=== PATIENT | female | born 1950 | race Two or more races ===

== ENCOUNTER 2018-09-02 07:29 | Emergency (ER) | payer MEDICARE, OTHER ==
--- NOTE | 2018-09-02 08:21 | ER Document Report ---
ED General - General Chief Complaint: Low Back Pain Stated Complaint: BACK PAIN Time Seen by Provider: 09/02/18 08:17 Primary Care Provider: RITA MORFIN MD [ACTIVE STAFF] - Follow up in 3-5 days BELÉN GARCIA MD [ACTIVE STAFF] - Follow up in 3-5 days TRAVEL OUTSIDE OF THE [place] IN LAST 30 DAYS: No - HPI Notes: 68-year-old female with a history of hypertension, chronic back pain and a hiatal hernia presents to the ED with complaints of having acute on chronic lower back pain over patient states that this back pain has become progressively worse over the last 2 weeks on the right, states he has more pain in the flank area, patient also reports that she feels like she has "bugs all over my body" for the last 3 months. Patient has used colitis multiple times, had a e xterminator in her home to check for any bugs. Patient states she feels like she has box in her hair patient denies any recent trauma or falling is supposed to have spinal surgery in [place] which she is aware her home is but she is visiting her daughter approximately 1 month. Patient has not told her doctor that she is feeling the sensation of bugs all over because she does not want them to cancel her surgery. Denies any new medications, new foods and only recent travel is been between [place] and [facility]. Daughter is at bedside and confirms that patient is staying with her and she has been complaining daily of feeling like she has bugs all over. Patient did have bugs in her home in April 2018 due to buying a new rug, she since then has had bugs removed. Daughter states that she has been on mother's home several times within the last 4 months and there hasn't been any bugs that she has witnessed. Denies fevers, chills, chest pain,palpitations, shortness of breath, dyspnea, nausea, vomiting, diarrhea, abdominal pain, hematuria,blurred vision, double vi hammad, loss of vision, speech changes, LH, dizziness, syncope, headaches, wheezing, ST, URI, neck pain, weakness, bowel or bladder dysfunction, saddle anesthesia, numbness or tingling in bilateral upper or lower extremities equally, muscle paralysis, weakness in bilateral upper or lower extremities e qually or rash. - Related Data Allergies/Adverse Reactions: No Known Allergies Allergy (Verified 09/02/18 07:48) Past Medical History - General Information source: Patient, Relative - daughter - Social History Smoking Status: Never Smoker Chew tobacco use (# tins/day): No Frequency of alcohol use: None Drug Abuse: None Family History: Hypertension Patient has suicidal ideation: No Patient has homicidal ideation: No - Past Medical History Cardiac Medical History: Reports: Hx Hypertension Renal/ Medical History: Reports: Hx Kidney Stones. Denies: Hx Peritoneal Dialysis GI Medical History: Reports: Hx Gastroesophageal Reflux Disease Psychiatric Medical History: Reports: Hx Depression - anxiety Past Surgical History: Reports: Hx Hysterectomy, Hx Kidney (Renal Surgery), Hx Orthopedic Surgery - back, Hx Tubal Ligation Review of Systems - Review of Systems Constitutional: No symptoms reported EENT: No symptoms reported Cardiovascular: No symptoms reported Respiratory: No symptoms reported Gastrointestinal: No symptoms reported Genitourinary: No symptoms reported Female Genitourinary: No symptoms reported Musculoskeletal: See HPI Skin: See HPI Hematologic/Lymphatic: No symptoms reported Neurological/Psychological: No symptoms reported Physical Exam - Vital signs Vitals: Temp Pulse Resp BP Pulse Ox 97.5 F 65 16 194/101 H 99 09/02/18 07:35 09/02/18 07:35 09/02/18 07:35 09/02/18 07:35 09/02/18 07:35 - Notes Notes: PHYSICAL EXAMINATION: GENERAL: Well-appearing, well-nourished and in no acute distress. HEAD: Atraumatic, normocephalic.. Multiple scabs on scalp with slight erythema and induration. EYES: Pupils equal round and reactive to light, extraocular movements intact, conjunctiva are normal. ENT: Nares patent, oropharynx clear without exudates. Moist mucous membranes. NECK: Normal range of motion, supple without lymphadenopathy LUNGS: Breath sounds clear to auscultation bilaterally and equal. No wheezes rales or rhonchi. HEART: Regular rate and rhythm without murmurs ABDOMEN: Soft, nontender, nondistended abdomen. No guarding, no rebound. No masses appreciated.no cva tenderness palpated. Female : External genitalia without erythema, exudate or discharge. no pubic hair noted. Vaginal vault is without discharge. Cervix is of normal color without lesion. There is no bleeding noted. Uterus is noted to be of normal size and nontender. No cervical motion tenderness is seen. No masses are palpated. no adnexal tenderness or mass. Anus without hemorrhoid, fissure, erythema, irritation or induration Musculoskeletal: Normal range of motion, no pitting or edema. No cyanosis Pain with flexion and extension at 50 degrees, positive straight leg test on right. tenderness distal to to right flank area with tendernessNormal hip rotation. DTR +2 in BLE equally. Strength 5 out of 5 both distally and proximally to bilatera lower extremities normal motor and sensory function in BLE equally. Distal pulses + 2 BLE equally. Noted paraspinal tenderness near L2 and L3 on right with No spinal tenderness from L1-L3. No CVA tenderness bilaterally. Femoral pulses + 2 bilaterally and equally. No abrasions, scars, lacerations, ecchymosis of any recent trauma. normal gait. NEUROLOGICAL: Cranial nerves grossly intact. Normal speech, normal gait. Normal sensory, motor exams. PERRLA, EOMI. Full motor and sensory function throughout. Cam Specialist + 2 equal bilaterally in BUE. Tongue midline. No pronator drift. No ataxia. Neck with APROM. Raises eyebrows. Strength is 5 out of 5 in bilateral upper and lower extremities equally.Speaks in full sentences. No weakness on one side. Romberg gait steady able to walk straight line. Able to recall 5 objects. PSYCH: Normal mood, normal affect, slightly anxious SKIN: Warm, Dry, normal turgor, no rashes or lesions noted. Course - Re-evaluation Re-evalutation: 09/02/18 14:12 38-year-old female who is afebrile, slightly hypertensive without distress for evaluation of lower back pain and the feeling of "bugs all over". He has had a history of chronic back pain however states his back pain is become progressively worse on the right with an increased sensation of feeling bugs all over. On clinical examination patient does have a positive straight leg test on the right however does have normal flexion extension for somebody with chronic back pain, normal rotation at the hips DTRs +2 in bilateral lower extremities and strength 5 out of 5 in bilateral lower extremities but does have pain on the right paraspinal near L1-L3 as well as spinal tenderness, initial x-ray lumbar spine does show a calcified mass at the vertebral L3 with surrounding lucency, requires MRI of the lumbar spine with and without IV contrast. CBC negative for leukocytosis or anemia, CMP negative for hepatic or renal dysfunction, urinalysis negative for UTI proteinuria hematuria, no dehydration. MRI with and without contrast of the lumbar spine shows multilevel degenerative disc and facet changes without a high-grade central or foraminal encroachment. Large L3 vertebral body hemangioma previously treated with kyphoplasty, bone cement injection per radiology, Dr. Garima Gramajo. GC and wet mount negative, psych did go to bedside due to concerns for having the sensation of bugs all over for the last 3 months, mental health to clear patient any psychiatric co ncerns other than possibly a little anxiety, all medications have been reviewed and patient has not been in any new medications within the last year daughter has been at bedside throughout duration of ER visit. Discussed with daughter that she does not have a concerning mass however she does need follow-up with surgeon for meningioma evaluation patient does have an appointment with a back surgeon in [place]. Discussed with patient that we will start her on a course of oral antibiotics to treat for a scalp cellulitis, patient had to use multiple courses of skull lice which has caused almost a pseudo-chemical burn on her scalp, discussed with patient that she does need to trim her nails, to stop using Colace, and she does need to see her doctor outpatient. Provider discussed this with patient and daughter extensively, all questions and concerns were answered by this provider. Both patient and daughter verbalized understanding of the plan of care and agreed with plan of care. Patient remained stable throughout duration of stay, afebrile, no distress, denied any pain after performing a Medical Screening Examination, I estimate there is LOW risk for EXPANDING OR RUPTURED ABDOMINAL AORTIC ANEURYSM, CAUDA EQUINA SYNDROME, EPIDURAL MASS ABSCESS OR LESION(S), OSTEOMYELITIS,PERSONAL HISTORY OF CANCER, IMMUNOSUPPERSSSION, HISTORY OF IV DRUG USE, FRACTURE, CORD COMPERSSION, CANCER, RETROPERITONEAL BLEED, SPINAL EPIDURAL HEMATOMA, or HERNIATED DISK CAUSING SEVERE SPINAL STENOSIS, thus I consider the discharge disposition reasonable. I have reevaluated this patient multiple times and no significant life threatening changes are noted. The patient and I have discussed the diagnosis and risks, and we agree with discharging home and close follow-up. We also discussed returning to the Emergency Department immediately if new or worsening symptoms occur with the understanding that symptoms and presentations can change. We have discussed the symptoms which are most concerning (e.g., saddle anesthesia, urinary or bowel incontinence or retention, changing or worsening pain) that n ecessitate immediate return. Return immediately for any new or worsening symptoms. Follow up with primary care provider, call tomorrow to make followup appointment. 09/02/18 14:19 - Vital Signs Vital signs: Temp Pulse Resp BP Pulse Ox 97.5 F 65 18 150/73 H 97 09/02/18 07:35 09/02/18 07:35 09/02/18 12:26 09/02/18 12:26 09/02/18 12:26 - Laboratory Result Diagrams: 09/02/18 09:30 09/02/18 09:30 Laboratory results interpreted by me: 09/02/18 09/02/18 09/02/18 09:30 09:30 09:30 RDW 14.5 H TSH 8.19 H Salicylates < 1.0 L Acetaminophen < 10 L Discharge - Discharge Clinical Impression: Lumbar hemangioma, Cellulitis of scalp Condition: Stable Disposition: HOME, SELF-CARE Instructions: Cellulitis ([facility]), Low Back Pain ([facility]) Additional Instructions: Your MRI of your lower back showed that you have a lumbar hemangioma. You do need to follow-up with surgeon for possible kyphoplasty or possible bone cement and further evaluation. all of your lab work was normal, your vaginal swabs were negative, we will start you on an antibiotic scalp cellulitis. Take medications as directed, to follow-up with your primary care provider within 24 to 48 hours. Return immediately for any new or worsening symptoms such as worsening back pain, vaginal bleeding, fever, vomiting, or pain, shortness of breath, confusion, etc. Follow up with primary care provider, call tomorrow to make followup appointment. Prescriptions: Cephalexin Monohydrate [Keflex 500 mg Capsule] 500 mg PO BID #20 capsule Referrals: BELÉN GARCIA MD [ACTIVE STAFF] - Follow up in 3-5 days RITA MORFIN MD [ACTIVE STAFF] - Follow up in 3-5 days
[2018-09-02 09:02] LABS: AMORPHOUS SEDIMENT,URINE TRACE /HPF; APPEARANCE,URINE CLEAR; BILIRUBIN,URINE NEGATIVE (NEGATIVE); COLOR,URINE STRAW; GLUCOSE, URINE NEGATIVE (NEGATIVE); KETONES,URINE NEGATIVE (NEGATIVE); LEUKOCYTE ESTERASE,URINE NEGATIVE (NEGATIVE); NITRITE,URINE NEGATIVE (NEGATIVE); PROTEIN,URINE NEGATIVE (NEGATIVE); URINE SPECIFIC GRAVITY 1.008; UROBILINOGEN,URINE NEGATIVE mg/dL (<2.0)
[2018-09-02 09:41] LABS: ABSOLUTE EOSINOPHILS # (AUTO) 0.2 10^3/uL (0.0-0.6); ABSOLUTE LYMPHOCYTES (AUTO) 1.6 10^3/uL (0.5-4.7); ABSOLUTE MONOCYTES (AUTO) 0.5 10^3/uL (0.1-1.4); ABSOLUTE NEUT (AUTO) 3.2 10^3/uL (1.7-8.2); BASOPHILS % (AUTO) 0.9 % (0-2); EOSINOPHILS % (AUTO) 3.4 % (0-6); HEMATOCRIT 36.8 % (36.0-47.0); HEMOGLOBIN 12.5 g/dL (12.0-15.5); LYMPHOCYTES % (AUTO) 28.9 % (13-45); MEAN CORPUSCULAR HEMOGLOBIN 29.7 pg (27.0-33.4); MEAN CORPUSCULAR VOLUME 87 fl (80-97); MONOCYTES % (AUTO) 9.1 % (3-13); PLATELET COUNT 306 10^3/uL (150-450); RED BLOOD COUNT 4.22 10^6/uL (3.72-5.28); RED CELL DISTRIBUTION WIDTH 14.5 % (11.5-14.0); SEGMENTED NEUTROPHILS % (AUTO) 57.7 % (42-78); TOTAL CELLS COUNTED % (AUTO) 100 %; WHITE BLOOD COUNT 5.6 10^3/uL (4.0-10.5)
[2018-09-02 10:12] LABS: ALANINE AMINOTRANSFERASE 25 U/L (9-52); ALBUMIN 4.2 g/dL (3.5-5.0); ALKALINE PHOSPHATASE 92 U/L (38-126); ANION GAP 9 (5-19); ASPARTATE AMINO TRANSFERASE 20 U/L (14-36); BILIRUBIN,DIRECT 0.3 mg/dL (0.0-0.4); BLOOD UREA NITROGEN 14 mg/dL (7-20); CALCIUM 9.7 mg/dL (8.4-10.2); CARBON DIOXIDE 27 mmol/L (22-30); CHLORIDE 105 mmol/L (98-107); GLUCOSE 94 mg/dL (75-110); SODIUM 140.7 mmol/L (137-145); TOTAL PROTEIN 7.1 g/dL (6.3-8.2)
--- NOTE | 2018-09-02 10:16 | RADIOLOGY REPORT (SQ) ---
EXAM DESCRIPTION: L SPINE WHOLE COMPLETED DATE/TIME: 09/02/2018 9:48 am REASON FOR STUDY: right flank/right lumbar pain COMPARISON: None. NUMBER OF VIEWS: Five views including obliques. TECHNIQUE: AP, lateral, oblique, and sacral radiographic images acquired of the lumbar spine. LIMITATIONS: None. FINDINGS: MINERALIZATION: Normal. SEGMENTATION: Normal. No transitional anatomy. ALIGNMENT: Scoliosis of the lumbar spine, apex to the left. Normal. VERTEBRAE: A 3.0 cm x 3.8 cm calcified mass within the L3 vertebra. There are surrounding lucent are as and areas of striations surrounding the calcified mass. The left pedicle is obscured by the mass. No evidence of acute fracture or retropulsion into the spinal canal. The vertebral body appears to be of normal height. Considerations for this finding includes benign versus malignant etiologies. DISCS: Calcified mass within the L3 vertebra. There are lucent striations POSTERIOR ELEMENTS: Pedicles and facets are intact. No pars defect or posterior arch defects. HARDWARE: None in the spine. PARASPINAL SOFT TISSUES: Normal. PELVIS: Intact as visualized. No fractures. Small bone island mid right sacrum. SI joints intact. OTHER: No other significant finding. IMPRESSION: 1. A fairly well-defined calcified mass within the L3 vertebra with surrounding lucency . No evidence of acute fracture. Differential diagnosis includes benign versus malignant etiologies . Additional imaging suggested, MRI lumbar spine with and without contrast. TECHNICAL DOCUMENTATION: JOB ID: [id number]- All Rights Reserved Reading location - IP/workstation name: [email or web address]
[2018-09-02 10:48] LABS: T.VAGINALIS (WET MOUNT) NO TRICHOMONAS SEEN; WBCS (WET MOUNT) RARE WBCS SEEN; YEAST (WET MOUNT) NO YEAST SEEN
[2018-09-02 11:45] LABS: ACETAMINOPHEN < 10 ug/mL (10-30); SALICYLATE < 1.0 mg/dL (2.0-20.0)
[2018-09-02 12:04] LABS: URINE AMPHETAMINES SCREEN NEGATIVE; URINE BARBITURATES SCREEN NEGATIVE; URINE BENZODIAZEPINES SCREEN NEGATIVE; URINE COCAINE SCREEN NEGATIVE; URINE MARIJUANA (THC) SCREEN NEGATIVE; URINE METHADONE SCREEN NEGATIVE; URINE PHENCYCLIDINE SCREEN NEGATIVE
[2018-09-02 12:19] LABS: GON PCR NOT DETECTED (NOT DETECT)
[2018-09-02 12:22] LABS: CHLAM PCR NOT DETECTED (NOT DETECT)
--- NOTE | 2018-09-02 12:41 | RADIOLOGY REPORT (SQ) ---
EXAM DESCRIPTION: MRI LUMBAR SPINE COMBO COMPLETED DATE/TIME: 09/02/2018 12:21 pm REASON FOR STUDY: mass seen on lumbar xray, MRI recommended COMPARISON: Lumbar spine plain films 09/02/2018 TECHNIQUE: Sagittal and Axial imaging includes T1, T1 post gadolinium, T2, STIR and gradient echo se quences. Coronal T2/HASTE imaging. CONTRAST TYPE AND DOSE: 15 mL Dotarem. RENAL FUNCTION: Not indicated. ACR Type II contrast agent associated with few, if any, unconfounded cases of NSF LIMITATIONS: None. FINDINGS: VISUALIZED UPPER ABDOMEN: Bilateral renal parapelvic cysts are present SEGMENTATION: No transitional anatomy. The lowest well-developed disc space is labeled L5-S1. ALIGNMENT: Anatomic. VERTEBRAE and BONE MARROW: The L3 vertebral body is near completely replaced by a benign-appearing he mangioma. Hemangioma causes mild expansion of the vertebral body with mild dorsal bowing of the bony cortex. No significant central canal stenosis at L3. Hemangioma extends into the right and left pe dicles. There is bone cement in the L3 vertebral body along the anterior 2/3 within the hemangioma. This accounts for "well defined a calcified mass within the L3 vertebra". No abnormal contrast enha ncement post gadolinium. DISC SIGNAL: Diffuse decreased T2 weighted intervertebral disc signal without disc space loss of heig ht POSTERIOR ELEMENTS: Generally intact. No pars defect evident. HARDWARE: None in the spine. CORD AND CONUS: Normal in size and signal intensity. Conus at the L1 level. SOFT TISSUES: No aortic aneurysm seen. No bulky retroperitoneal adenopathy or mass. No paraspinal mas s or fluid. T11-12: Mild bilateral facet hypertrophy. No central or foraminal stenosis T12-L1: Mild diffuse posterior disc bulging and mild bilateral facet hypertrophy. No central or for aminal stenosis. L1-L2: Mild bilateral facet hypertrophy. No central or foraminal stenosis L2-L3: Mild posterior disc bulging, mild bilateral facet and ligament hypertrophy. No significant ce ntral canal narrowing. Very mild bilateral inferior foraminal narrowing without exiting L2 nerve trey t impingement L3-L4: Mild diffuse posterior disc bulging, moderate bilateral facet and ligament hypertrophy. Borde rline central canal narrowing, mild bilateral foraminal narrowing without exit L3 nerve root impingem ent. L4-L5: Borderline central canal narrowing results from broad diffuse posterior disc bulging and bony spurring with bulky bilateral facet and ligament hypertrophy. Mild bilateral foraminal narrowing wit hout exit L4 nerve root impingement L5-S1: Mild bilateral facet hypertrophy and posterior disc bulging. No central or foraminal stenosis SACRUM: Visualized upper sacrum intact. ENHANCEMENT: No abnormal conus, vertebral body, or lumbar nerve root enhancement OTHER: No other significant findings. IMPRESSION: Multilevel degenerative disc and facet changes without high-grade central or foraminal e ncroachment. Large L3 vertebral body hemangioma previously treated with kyphoplasty/bone cement injection TECHNICAL DOCUMENTATION: JOB ID: [id number] [employer]- All Rights Reserved Reading location - IP/workstation name: [email or web address]
--- NOTE | 2018-09-02 13:45 | PSYCHOLOGICAL NOTE ---
Psych Note - Psych Note Date seen by psych provider: 09/02/18 Time seen by psych provider: 12:25 Psych Note: Reason for Consult: visual and tactile hallucinations. Patient's daughter is bedside per patient's request Pt presents to ER today with c/o low back pain X 1 week. States she had surgery on it a while back but it is acting up. Pt also has c/o bugs in her hair. States she has something in her hair that is itching and painful. Feels like something is biting her head. Clinician spoke with attending physician; she reports the patient has a full exam to include pelvic (as the patient was concerned with bugs biting her anus and around her vaginal area); there were no visible bugs and testing was conducted. Patient reports she started feeling like there was bugs on her in May. She denies any new medications. She disclosed that she believes the bugs are coming from inside of her and that she can feel them biting and crawling on her. She reports that she sees little black dots and when she shakes out her bedsheet into the tub it turns to blood. She reports she believes they are lice eggs. She has been using lice treatments and combing her hair in an attempt at getting rid of them. She states she has open sores on her head from the bugs and itching. Clinician discussed the concern of using lice treatment to frequently or leaving it on too long could cause chemical burn which could worsen her scalp condition and make it itch and hurt even more. She denies this has ever happened to her before but reports she does have a "nervous disorder" that causes her to breakout in a "skin condition" when she is overly upset or anxious. She denies it looks the same as her current concerns. She denies having any other mental health concerns over the years or any family history. Clinician discussed concern that there is a medical issue the patient is experiencing that is causing her to see and feel the bugs. It was explained that there is medication that can be given to help the patient so she is not so uncomfortable with feeling bugs while the doctors are identifying and treatment her medical issue. Patient declines, expressing that she would like to ask her primary doctor because she does not want to have to take more medication then she already does and she has a scheduled surgery in a month. Patient requests assistance with healing the open sores on her scalp. Patient's daughter confirms patient's reported onset of symptoms. She confirms the patient has never had this happen to her before; to her knowledge. She disclosed that the sores on the patient's head are bad with some that have puss. She confirms the patient has been using lice treatment and agrees this could be making it worse. no medication recommendations at this time; patient requests to follow up with her primary outpatient 300.00 (F41.9) unspecified anxiety disorder per history provided by patient R/O 297.1 (F22) delusional disorder; somatic type Clinician notes it is unclear if patient's delusions of infestation as a result of a medical condition. Patient denies any new medication prior to onset. Impression\\plan: Patient is cleared from acute psychiatric services. She requests assistance only to help heal the open wounds. Clinician provided psychoeducation to both patient and patient's daughter to help the patient from further injuring her skin (eg understanding it is possible a medical condition that is causing her to see and feel the bugs, not to use harsh chemicals in an attempt to treat her skin, and that some psychiatric medications can help her so she is not uncomfortable and feeling the bugs). Patient declines medication assistance reporting that she is in the care of her primary physician with an upcoming scheduled surgery. She reports that she would like to discuss medications with her outpatient provider. Patient reports a "nervous disorder" that causes her to have a skin condition but denies experiencing anything like this previously. Patient confirms she can come back for assistance at any time. Dr. Marcos was consulted on the care and management of this patient; attending physician is in agreement with recommendations and disposition.
[2018-09-02 14:10] VITALS: BP 148/57
== END 2018-09-02 14:10 | disposition home or self-care (01) ==
LOC: ER 07:29
DX: L03.811 Cellulitis of head [any part, except face] (principal); D18.09 Hemangioma of other sites; G89.29 Other chronic pain; M54.5 Low back pain; I10 Essential (primary) hypertension; Z90.710 Acquired absence of both cervix and uterus
CPT/HCPCS: 99284; 36415; 87210; 80307 ×3; 84443; 85025; 80053; 81001; 87491; 87591; 72158; 72110; A9576